=== PATIENT | female | born 1975 | race Caucasian/White ===

== ENCOUNTER → 2017-07-18 | Outpatient (CLI) | payer OTHER | END | disposition home or self-care (01) | LOC: RAD 10:23 | DX: J44.9 Chronic obstructive pulmonary disease, unspecified (principal) ==

== ENCOUNTER 2019-10-22 12:16 | Inpatient (IN) | payer OTHER ==
[~2019-10-22] VITALS: Ht 157.5 cm; Wt 37.4 kg
[2019-10-22 12:30] VITALS: BP 118/64
--- NOTE | 2019-10-22 12:30 | NUR ---
Time: 1230 A 44 year old F admitted to under services of DR. CYDNEY OKEEFE,TENA. Pt. arrived via ambulatory from [place]. Chief complaint: DEHYDRATION AND DIARRHEA FOR ONE WEEK. MATI SÁNCHEZ
[2019-10-22 13:22] LABS: BASO # 0.1 10*3/uL (0.0-0.1); BASO % 0.5 % (0.0-1.0); EOS # 0.1 10*3/uL (0.0-0.4); EOS % 0.9 % (1.0-4.0); HEMATOCRIT 44.7 % (37.0-47.0); HEMOGLOBIN 14.5 g/dl (12.0-16.0); LYMPH # 2.7 10*3/uL (1.3-4.4); LYMPH % 25.4 % (27.0-41.0); MEAN CELL VOLUME 86.3 fl (81.0-99.0); MEAN CORPUSCULAR HGB CONC 32.4 g/dl (33.0-37.0); MEAN PLATELET VOLUME 12.7 fl (9.6-12.3); MONO # 0.5 10*3/uL (0.1-1.0); MONO % 4.9 % (3.0-9.0); NEUT # 7.3 10*3/uL (2.3-7.9); NEUT % 67.8 % (47.0-73.0); PLATELET COUNT AUTOMATED 232 10*3/uL (130-400); RED BLOOD COUNT 5.18 10*6/uL (4.10-5.10); RED CELL DISTRI WIDTH 14.6 % (0-14.5); WHITE BLOOD COUNT 10.8 10*3/uL (4.8-10.8)
[2019-10-22 13:34] LABS: ACT PARTIAL THROMBO TIME 25.9 SECONDS (20.0-32.1); INTERNATIONAL NORM RATIO 0.9 (2.0-3.5)
[2019-10-22 13:53] LABS: ALBUMIN 4.4 gm/dl (3.1-4.5); ALKALINE PHOSPHATASE 100 U/L (45-117); BUN 9 mg/dl (7-24); CHLORIDE 109 mmol/L (98-107); CREATININE 0.78 mg/dL (0.55-1.02); PHOSPHOROUS 2.8 mg/dL (2.5-4.9); SGOT/AST 14 IU/L (3-35); SGPT/ALT 17 U/L (12-78); SODIUM 139 mmol/L (136-145); TOTAL PROTEIN 7.9 gm/dL (6.4-8.2)
[2019-10-22 15:24] LABS: BILIRUBIN 1+ (NEGATIVE); BLOOD 2+ (NEGATIVE); CLARITY SL CLOUDY (CLEAR); COLOR YELLOW (YELLOW); GLUCOSE NEGATIVE (NEGATIVE); KETONE NEGATIVE (NEGATIVE); LEUKO ESTERASE NEGATIVE (NEGATIVE); NITRITE NEGATIVE (NEGATIVE); UROBILINOGEN 0.2 E.U./dl (0.2-1.0)
[2019-10-22 15:25] LABS: BACTERIA 2+; EPITHELIAL CELLS 41-50; MUCOUS 3+; RBC 0-2 rbc/hpf (0-2)
[2019-10-22 16:00] VITALS: BP 112/68; BP 129/73
[2019-10-22 20:00] VITALS: BP 122/60
[2019-10-22] MEDS ORDERED: IBUPROFEN400 MG PO (20:41)
[2019-10-22] MEDS ORDERED: VITAMIN D3125 MCG PO (20:41)
[2019-10-22] MEDS ORDERED: OYSTER SHELL 51 EACH PO (20:42)
[2019-10-22] MEDS ORDERED: FEROSUL325 MG PO (20:42)
[2019-10-22] MEDS ORDERED: NATURE'S BLEND F1 MG PO (20:43)
--- NOTE | 2019-10-22 20:49 | NUR ---
MED REC UPDATED.
--- NOTE | 2019-10-22 23:13 | NUR ---
24hr chart check completed.
--- NOTE | 2019-10-22 23:54 | NUR ---
SLEEPING, NO SXS OF DISTRESS. CALL LIGHT IN REACH. IVF INFUSING WITH EASE.
[2019-10-23] VITALS: BP 125/61
--- NOTE | 2019-10-23 06:03 | NUR ---
REFUSED AM LABS.
[2019-10-23 08:00] VITALS: BP 116/62
--- NOTE | 2019-10-23 08:07 | NUR ---
PATIENT REFUSED LABWORK THIS AM. EXPLAINED WHY SHE NEEDED THEM THEN SHE AGREED TO HAVE THEM. RE-ENTERRED LABS NURSING MEASURE.
[2019-10-23 08:18] LABS: BASO % 0.1 % (0.0-1.0); EOS # 0.2 10*3/uL (0.0-0.4); EOS % 1.3 % (1.0-4.0); HEMATOCRIT 39.9 % (37.0-47.0); HEMOGLOBIN 13.1 g/dl (12.0-16.0); LYMPH # 1.1 10*3/uL (1.3-4.4); LYMPH % 7.7 % (27.0-41.0); MEAN CELL VOLUME 88.1 fl (81.0-99.0); MEAN CORPUSCULAR HGB 28.9 pg (27.0-31.0); MEAN CORPUSCULAR HGB CONC 32.8 g/dl (33.0-37.0); MONO # 0.6 10*3/uL (0.1-1.0); MONO % 4.1 % (3.0-9.0); NEUT # 12.5 10*3/uL (2.3-7.9); NEUT % 86.4 % (47.0-73.0); PLATELET COUNT AUTOMATED 194 10*3/uL (130-400); RED BLOOD COUNT 4.53 10*6/uL (4.10-5.10); RED CELL DISTRI WIDTH 14.6 % (0-14.5); WHITE BLOOD COUNT 14.5 10*3/uL (4.8-10.8)
[2019-10-23 08:49] LABS: ALBUMIN 3.5 gm/dl (3.1-4.5); BUN 7 mg/dl (7-24); CHLORIDE 113 mmol/L (98-107); POTASSIUM 3.8 mmol/L (3.5-5.1); SODIUM 141 mmol/L (136-145)
[2019-10-23 08:56] LABS: ALKALINE PHOSPHATASE 82 U/L (45-117); CHOLESTEROL 127 mg/dL (<200); CREATININE 0.72 mg/dL (0.55-1.02); HDL CHOLESTEROL 47 mg/dl (40-60); LDL CHOLESTEROL 65 mg/dL (9-159); PHOSPHOROUS 2.6 mg/dL (2.5-4.9); SGOT/AST 10 IU/L (3-35); SGPT/ALT 14 U/L (12-78); TOTAL PROTEIN 6.3 gm/dL (6.4-8.2); TRIGLYCERIDES 76 mg/dl (<150); VLDL CHOLESTEROL 15 mg/dL (6-40)
--- NOTE | 2019-10-23 09:00 | NUR ---
[employer] in to talk to patient. Patient states lives at home with her and 20 yo daughter. There are 18 steps in the home. Physician: Dr. Stacy but wants to start seeing Dr. Guthrie [facility]: [facility] Home health services: none Patient's level of ADLs: INDEPENDENT Patient has working utilities: yes DME: none Follow-up physician's appointment after d/c: she prefers to make her own follow up appt after discharge Does patient want to access PORTAL?: no Discharge plan discussed with patient. She lives at home with her family and her son living next door. She is independent in her ADLs and ambulation. Discussed home health care needs and she denies any home needs and questioned if everyone gets a case finishing machine adjuster or if something is wrong. Explained every patient has a case finishing machine adjuster and she verbalized an understanding. When medically stable she will be discharged to home. She states her , son, or daughter will provide transportation on discharge. CHINYERE YO
--- NOTE | 2019-10-23 10:05 | NUR ---
PHYSICAL THERAPY Sha completed low level of complexity 65488 recomend home with family. Pt is presently Independent w transfers, Ind w amb no AD >200 ft steady gait 8 steps with HR supervision to Mod Ind. Pt has no concerns with functional activity at this time, no skilled PT need at this time will discontinue services. Roxana Doshi PT
--- NOTE | 2019-10-23 10:05 | NUR ---
Occupational Therapy evaluation completed on 5 with full eval to follow. Precautions include IV UE,recent 10 lb weight loss and patient weighs 82 lbs presently, low complexity level [id number]. Recommend return home w/ family with no further therapy needs at this time. Thank you. Shelly Gabriel OTR/l
--- NOTE | 2019-10-23 11:16 | NUR ---
Nutritional Support Services Note: Spoke w/ pt regarding appetite and concerns w/ weight. Pt stated that she eats all day long and cannot gain weight. She stated that she's always been thin. Encouraged her to try shakes for extra calories. Will provide milkshakes at lunch and dinner. Will follow if needed. Franny Wu, [employer] video intern
[2019-10-23 12:00] VITALS: BP 108/64
--- NOTE | 2019-10-23 13:37 | NUR ---
Discharge instructions reviewed with patient/family. Patient receptive and verbalizes understanding. Follow-up care arranged. Written instructions given to patient/family. ARIELLE LIM
== END 2019-10-23 13:37 | disposition home or self-care (01) | DRG 641 ==
LOC: 5E 12:16
PROVIDERS: Hospitalist; ADMIT Internal Medicine
DX: E86.0 Dehydration (principal); I95.9 Hypotension, unspecified; R82.71 Bacteriuria; R31.21 Asymptomatic microscopic hematuria; D72.810 Lymphocytopenia; E55.9 Vitamin D deficiency, unspecified; E03.9 Hypothyroidism, unspecified; M81.0 Age-related osteoporosis without current pathological fracture; Z98.51 Tubal ligation status; Z82.49 Family history of ischemic heart disease and other diseases of the circulatory system; Z82.3 Family history of stroke; Z80.0 Family history of malignant neoplasm of digestive organs; Z88.1 Allergy status to other antibiotic agents

== ENCOUNTER → 2020-02-04 | Outpatient (CLI) | payer OTHER ==
[~2020-02-04] MED LIST: FEROSUL325 MG PO; IBUPROFEN400 MG PO; NATURE'S BLEND F1 MG PO; OYSTER SHELL 51 EACH PO; VITAMIN D3125 MCG PO
== END | disposition home or self-care (01) ==
LOC: MRI 12:39
DX: N88.8 Other specified noninflammatory disorders of cervix uteri (principal); N94.89 Other specified conditions associated with female genital organs and menstrual cycle; R93.89 Abnormal findings on diagnostic imaging of other specified body structures; R93.9 Diagnostic imaging inconclusive due to excess body fat of patient

== ENCOUNTER → 2020-03-22 | Outpatient (CLI) | payer OTHER ==
[2020-03-22 11:36] LABS: BASO # 0.1 10*3/uL (0.0-0.1); BASO % 0.3 % (0.0-1.0); EOS # 0.3 10*3/uL (0.0-0.4); EOS % 1.7 % (1.0-4.0); HEMATOCRIT 40.6 % (37.0-47.0); LYMPH % 22.3 % (27.0-41.0); MEAN CELL VOLUME 89.4 fl (81.0-99.0); MEAN CORPUSCULAR HGB 29.1 pg (27.0-31.0); MEAN CORPUSCULAR HGB CONC 32.5 g/dl (33.0-37.0); MEAN PLATELET VOLUME 11.8 fl (9.6-12.3); MONO # 0.9 10*3/uL (0.1-1.0); MONO % 4.9 % (3.0-9.0); NEUT # 12.6 10*3/uL (2.3-7.9); NEUT % 70.4 % (47.0-73.0); PLATELET COUNT AUTOMATED 320 10*3/uL (130-400); RED BLOOD COUNT 4.54 10*6/uL (4.10-5.10); RED CELL DISTRI WIDTH 14.3 % (0-14.5); WHITE BLOOD COUNT 17.9 10*3/uL (4.8-10.8)
[2020-03-22 11:55] LABS: ALBUMIN 3.9 gm/dl (3.1-4.5); ALKALINE PHOSPHATASE 98 U/L (45-117); BUN 7 mg/dl (7-24); CHLORIDE 109 mmol/L (98-107); CREATININE 0.85 mg/dL (0.55-1.02); POTASSIUM 3.9 mmol/L (3.5-5.1); SGOT/AST 11 IU/L (3-35); SGPT/ALT 15 U/L (12-78); SODIUM 139 mmol/L (136-145); TOTAL PROTEIN 7.3 gm/dL (6.4-8.2)
== END | disposition home or self-care (01) ==
LOC: LAB 02:55
PROVIDERS: Obstetrics & Gynecology
DX: D49.59 Neoplasm of unspecified behavior of other genitourinary organ (principal); M41.9 Scoliosis, unspecified

== ENCOUNTER → 2020-05-03 | Outpatient (CLI) | payer OTHER ==
[2020-05-03 12:18] LABS: ALBUMIN 3.7 gm/dl (3.1-4.5); ALKALINE PHOSPHATASE 100 U/L (45-117); BUN 13 mg/dl (7-24); CHLORIDE 105 mmol/L (98-107); CREATININE 0.77 mg/dL (0.55-1.02); POTASSIUM 4.1 mmol/L (3.5-5.1); SGOT/AST 10 IU/L (3-35); SGPT/ALT 12 U/L (12-78); SODIUM 138 mmol/L (136-145); TOTAL PROTEIN 8.4 gm/dL (6.4-8.2)
== END | disposition home or self-care (01) ==
LOC: LAB 11:47
PROVIDERS: Nurse Practitioner Family
DX: R42 Dizziness and giddiness (principal)

== ENCOUNTER → 2020-05-20 | Outpatient (CLI) | payer OTHER | END | disposition home or self-care (01) | LOC: RAD 13:13 | PROVIDERS: ATTEND Obstetrics & Gynecology | DX: R10.9 Unspecified abdominal pain (principal) ==

== ENCOUNTER → 2021-06-07 | Outpatient (CLI) | payer OTHER ==
[~2021-06-07] MED LIST changes: -IBUPROFEN400 MG PO; +IBUPROFEN600 MG PO; +LEXAPRO5 M1 PO; +NICODERM CQ1 EAC2 T
== END | disposition home or self-care (01) ==
LOC: CARD 00:04
PROVIDERS: ATTEND Family Medicine
DX: R07.2 Precordial pain (principal)

== ENCOUNTER → 2022-12-27 | Outpatient (CLI) | payer OTHER | END | disposition home or self-care (01) | LOC: MAMMO 12-20 11:00 | PROVIDERS: ATTEND Internal Medicine | DX: Z12.31 Encounter for screening mammogram for malignant neoplasm of breast (principal) ==

== ENCOUNTER → 2023-09-12 | Outpatient (CLI) | payer OTHER | END | disposition home or self-care (01) | LOC: RAD 11:02 | PROVIDERS: ATTEND Nurse Practitioner Family | DX: M19.012 Primary osteoarthritis, left shoulder (principal); M25.512 Pain in left shoulder; Q74.0 Other congenital malformations of upper limb(s), including shoulder girdle ==